=== PATIENT | male | born 1940 | race Caucasian/White ===

== ENCOUNTER 2023-10-22 10:18 | Emergency (ER) | payer MEDICARE ==
[2023-10-22] MEDS ORDERED: Ketorolac Tromethamine 30 MG/ML VIAL ONE (10:49)
[2023-10-22] MEDS ORDERED: Dexamethasone 4 MG TAB ONE (10:49)
[2023-10-22 11:40] LABS: SARS-CoV-2 NAA Rapid Test Not Detected (NotDetected)
== END 2023-10-22 13:00 | disposition home or self-care (01) ==
LOC: ERS 10:18
DX: J21.0 Acute bronchiolitis due to respiratory syncytial virus (principal); E11.9 Type 2 diabetes mellitus without complications; E78.5 Hyperlipidemia, unspecified; Z79.84 Long term (current) use of oral hypoglycemic drugs; Z79.899 Other long term (current) drug therapy
CPT/HCPCS: 0241U; 96372; 99283; J1885; J8540